=== PATIENT | male | born 1960 | race African-American/Black ===

== ENCOUNTER → 2017-02-08 | Outpatient (CLI) | payer BC ==
[~2017-02-08] MED LIST: REGADENOSON 0.4 MG/5 ML DISP.SYRIN. IV ONE
--- NOTE | 2017-02-11 12:38 | PCVCIMAG ---
APPROVED REPORT Exam: Nuclear Stress Test Indication: Chest pain, Dyspnea, CAD, Fatigue Patient Location: Out-Patient Stress Nurse: Carol Carrillo RN, LASHAWN Sapp Tech:Igor [email or web address] Ht: 6 ft 3 in Wt: 250 lbs BSA: 2.41 m2 HR: 73 bpm BP: 172/95 mmHg BMI: 31.2 Rhythm: SR, T Wave Abn Medical History Medical History: Age, Hyperlipidemia, HTN Medications: Zetia, Cozaar, Toprol XL, Nitro, Crestor Previous Cardiac Procedures: CABG, PCI Exercise History: Physically active Meds Held (24 hrs): Toprol XL NM EXAM: Myocardial Perfusion REST/STRESS Imaging Protocol: Rest Tc-99m/Stress Tc-99m 1 day Resting Data Rest SPECT myocardial perfusion imaging was performed in supine position 45 minutes following the intravenous injection of 11.2 mCi of Tc-99m Sestamibi. Time of rest injection: 1300 Date: 02/08/2017 Pharmacologic Stress Pharmacologic stress test was performed by injecting Regadenoson 0.4 mg IV push followed by the intravenous injection of 32.7 mCi of Tc-99m Sestamibi. Time of stress injection: 1420 Date: 02/08/2017 The images were gated to evaluate regional wall motion and calculate left ventricular ejection fraction. Study Quality Study: Good Study Data Post stress, the left ventricular ejection was 58%.. SSS: 2 SRS: 5 SDS: 0 TID = 1.00. 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 No evidence of stress induced ischemia. 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 No evidence of stress induced ischemia. Post stress, the left ventricular ejection was 58%.. No change since prior study dated October 2015. Interpreted by: Clay Banda MD Electronically Approved: 02/08/2017 16:55:32 Stress Test Details Stress Test: Pharmacologic stress was paired with low level exercise. Reason for pharmacologic stress test: physical limitation. HR Resting HR: 73 bpmMax Heart Rate (APMHR): 164 bpm Max HR Achieved: 107 bpmTarget HR (85% APMHR): 139 bpm % of APMHR: 65 Recovery HR: 70 bpm BP Resting BP: 172/95 mmHg Max BP: 191/102 mmHg ECG Resting ECG: Sinus Rhythm, nonspecific T abnormalities Stress ECG: Sinus Rhythm Recovery ECG: Sinus Rhythm Clinical Reason for Termination: Completed protocol Stress Symptoms: None Symptoms resolved during recovery. Stress ECG Conclusion ECG: Non-ischemic <Conclusion> ECG: Non-ischemic
== END | disposition home or self-care (01) ==
LOC: PCVCIMAG 13:39
PROVIDERS: ATTEND Internal Medicine Cardiovascular Disease
DX: I25.10 Atherosclerotic heart disease of native coronary artery without angina pectoris (principal); I10 Essential (primary) hypertension; E78.00 Pure hypercholesterolemia, unspecified; K52.9 Noninfective gastroenteritis and colitis, unspecified; Z95.1 Presence of aortocoronary bypass graft
CPT/HCPCS: 78452; 93017; A9500; J2785

== ENCOUNTER → 2018-11-26 | Outpatient (CLI) | payer BC ==
--- NOTE | 2018-11-26 12:02 | PCVCIMAG ---
APPROVED REPORT Study performed: 11/26/2018 10:50:33 Exam: Stress Echocardiogram Indication: Chest Heaviness Patient Location: Echo lab Stress Nurse: Anum Leon RN Status: routine Ht: 6 ft 3 in HR: 68 bpm BP: 126/80 mmHg Rhythm: NSR Medical History Medical History: CABGx5 (2014), Hyperlipidemia, HTN Procedure The patient underwent an Exercise Stress Test using the Zia Protocol. Blood pressure, heart rate, and EKG were monitored. An Echocardiogram was performed by instructional support technician in four stages in quad fashion. At peak stress, four selected images were obtained and placed side by side with resting images for comparison. Stress Test Details Stress Test: Exercise stress testing was performed using a Zia protocol. HR Resting HR: 68 bpmMax Heart Rate (APMHR): 162 bpm Max HR Achieved: 134 bpmTarget HR (85% APMHR): 137 bpm % of APMHR: 82 Recovery HR: 83 bpm HR response to stress: Normal HR response to stress BP Resting BP: 126/80 mmHg Max BP: 190/84 mmHg Recovery BP: 148/90 mmHg BP response to stress: Normal blood pressure response to stress. ECG Resting ECG: Sinus Rhythm Stress ECG: Sinus Rhythm Recovery ECG: Sinus Rhythm Clinical Reason for Termination: Maximal effort, Dyspnea Exercise duration: 6 min 16 sec Highest Stage Achieved: Stage 3: 3.4 mph at 14% grade. Exercise capacity: 7.80 METs Overall Exercise Capacity for Age: Below Average Stress ECG Conclusion ECG: Non-ischemic Clinical: Non-ischemic Pre-Stress Echo The resting Echocardiogram showed normal left ventricular contractility with an estimated Ejection Fraction of about 50-55%. Basal inferior hypokinesis and septal wall hypokinesis consistent wtih known cardiac surgery. Post-Stress Echo The stress Echocardiogram showed normal left ventricular contractility with an estimated Ejection Fraction of about 60-65%. Basal inferior wall remained hypokinetic. All other left ventricular segments increased in contractility. Clinical No clinical or ECG evidence for ischemia. Conclusion Clinical Response: Non-ischemic Exercise Capacity: Below Average Stress ECG Response: Non-ischemic Stress Echo Images: Non-ischemic No echocardiographic evidence for exercise induced ischemia. Other Information Study Quality: Adequate <Conclusion> No echocardiographic evidence for exercise induced ischemia.
== END | disposition home or self-care (01) ==
LOC: PCVCIMAG 10:42
PROVIDERS: ATTEND Internal Medicine Cardiovascular Disease
DX: I25.10 Atherosclerotic heart disease of native coronary artery without angina pectoris (principal); I25.5 Ischemic cardiomyopathy; I25.709 Atherosclerosis of coronary artery bypass graft(s), unspecified, with unspecified angina pectoris; I10 Essential (primary) hypertension
CPT/HCPCS: 93325; 93351